=== PATIENT | female | born 1940 | race African-American/Black ===

== ENCOUNTER 2017-04-28 19:51 | Inpatient (IN) | payer OTHER, BC ==
[~2017-04-28] VITALS: Ht 162.6 cm; Wt 68.5 kg
[2017-04-28 21:48] LABS: HEMATOCRIT 27.1 % (36.0-46.0); HEMOGLOBIN 8.7 G/DL (11.9-15.5); MCH 24.2 PG (29.0-34.0); MCHC 32.1 G/DL (30.0-36.0); MCV 75.5 FL (83-99); NRBC (%) 0.1 /100 WBC (0-0); PLATELET COUNT 619 K/uL (156-360); RED BLOOD COUNT 3.59 M/uL (3.80-5.20); WHITE BLOOD COUNT 13.8 K/uL (4.1-10.2)
[2017-04-28 22:01] LABS: ALBUMIN 2.5 g/dL (3.2-4.8)
[2017-04-28 22:02] LABS: CHLORIDE 97 mEq/L (99-109); SODIUM 132 mEq/L (136-147)
[2017-04-28 22:04] LABS: GLUCOSE 117 mg/dL (70-99); TOTAL PROTEIN 6.8 g/dL (6.4-8.3)
[2017-04-28 22:07] LABS: ALKALINE PHOSPHATASE 129 IU/L (3-129)
[2017-04-28 22:08] LABS: CREATININE 4.3 mg/dL (0.6-1.3); GFR ESTIMATE (CALCULATED) 13 mL/min/
[2017-04-28 22:09] LABS: AST (GOT) 35 IU/L (2-34)
[2017-04-28 22:11] LABS: ALT (GPT) 20 IU/L (3-49)
[2017-04-28 22:12] LABS: UREA NITROGEN (BUN) 70 mg/dL (9-23)
[2017-04-28 22:29] LABS: POTASSIUM 6.1 mEq/L (3.7-5.4)
[2017-04-28 22:39] LABS: ANISOCYTOSIS 2+; BASOPHIL (%) 0.1 % (0-1); EOSINOPHIL (%) 0.1 % (0-5); IMMATURE GRANULOCYTE (%) 0.6 % (0.0-0.7); LYMPHOCYTE (%) 6.1 % (15-42); LYMPHOCYTE COUNT 0.8 K/uL (1.0-2.8); MICROCYTOSIS 1+; MONOCYTE (%) 7.2 % (3-12); NEUTROPHIL (%) 85.9 % (45-76); NEUTROPHIL COUNT 11.9 K/uL (1.8-6.4); OVALOCYTES 3+; PLAT.SUFFICIENCY INCREASED; PLATELET CLUMPS PRESENT - PLATELET COUNT APPEARS ADQ.; POIKILOCYTOSIS 3+
[2017-04-28 22:54] LABS: MAGNESIUM 2.5 mg/dL (1.3-2.7)
[2017-04-29] VITALS (16 sets, daily range): BP systolic 60–111; BP diastolic 25–56
[2017-04-29] MEDS ORDERED: ONDANSETRON ODT8 MG PO (00:47)
[2017-04-29] MEDS ORDERED: COMPAZINE10 MG PO (00:47)
[2017-04-29] MEDS ORDERED: OXYCODONE HCL5 MG PO (00:48)
[2017-04-29] MEDS ORDERED: IBUPROFEN800 MG PO (00:49)
[2017-04-29] MEDS ORDERED: LAMOTRIGINE100 MG PO (00:50)
[2017-04-29] MEDS ORDERED: ATENOLOL25 MG PO (00:50)
[2017-04-29] MEDS ORDERED: HYDROCHLOROTHIA25 MG PO (00:51)
[2017-04-29] MEDS ORDERED: ATORVASTATIN CA40 MG PO (00:52)
[2017-04-29] MEDS ORDERED: RANITIDINE HCL300 MG PO (00:52)
[2017-04-29] MEDS ORDERED: LOSARTAN POTASS25 MG PO (00:53)
[2017-04-29] MEDS ORDERED: LO-DOSE ASPIRIN81 M2 PO (00:54)
[2017-04-29] MEDS ORDERED: MAGNESIUM400 M1 PO (00:55)
[2017-04-29 01:02] LABS: TROP-I INTERPRETATION NEGATIVE; TROPONIN-I 0.05 ng/mL (0.0-0.30)
[2017-04-29 07:25] LABS: ALBUMIN 2.3 G/DL (3.2-4.8); CHLORIDE 100 MEQ/L (99-109); CREATININE 4.4 MG/DL (0.6-1.3); GFR ESTIMATE (CALCULATED) 13 mL/min/; GLUCOSE 136 mg/dL (70-99); PHOSPHORUS 5.3 mg/dL (2.5-4.9); POTASSIUM 5.9 MEQ/L (3.7-5.4); SODIUM 133 MEQ/L (136-147); UREA NITROGEN (BUN) 68 mg/dL (9-23)
[2017-04-29 07:57] LABS: INTACT PARATHYROID HORMONE 174 pg/mL (10-69)
[2017-04-29 08:37] LABS: LACTATE DEHYDROGENASE 420 IU/L (20-246); URIC ACID 9.7 mg/dL (3.1-9.2)
[2017-04-29 14:35] LABS: INTER. NORMALIZED RATIO 1.2
[2017-04-29 14:39] LABS: PTT 20.3 SEC (25-37)
[2017-04-29 16:28] LABS: CHLORIDE 98 MEQ/L (99-109); GFR ESTIMATE (CALCULATED) 11 mL/min/; GLUCOSE 146 mg/dL (70-99); SODIUM 135 MEQ/L (136-147); UREA NITROGEN (BUN) 71 mg/dL (9-23)
[2017-04-29 16:29] LABS: POTASSIUM 6.4 MEQ/L (3.7-5.4)
[2017-04-29 21:36] LABS: ALBUMIN 2.5 G/DL (3.2-4.8); CHLORIDE 100 MEQ/L (99-109); GFR ESTIMATE (CALCULATED) 11 mL/min/; SODIUM 133 MEQ/L (136-147); UREA NITROGEN (BUN) 71 mg/dL (9-23); URIC ACID 10.3 mg/dL (3.1-9.2)
[2017-04-29 21:39] LABS: GLUCOSE 244 mg/dL (70-99)
[2017-04-29 21:40] LABS: PHOSPHORUS 7.2 mg/dL (2.5-4.9); POTASSIUM 6.4 MEQ/L (3.7-5.4)
[2017-04-30] VITALS (16 sets, daily range): BP systolic 87–105; BP diastolic 30–58
[2017-04-30 00:39] LABS: BASE EXCESS -11.6 mEq/L (-3 to +3); BICARBONATE 13.4 mEq/L (22-26); CARBOXY HGB 2.7 % (0-5); COMMENTS - BLOOD GASES C+A+; DEVICE NC; METHEMOGLOBIN 0.9 % (0-1.5); O2 FLOW 4 L/MIN; PCO2 26 mm Hg (35-45); PO2 62 mm Hg (80-100); SITE RR; pH 7.32 (7.35-7.45)
[2017-04-30 02:25] LABS: CHLORIDE 104 mEq/L (99-109); POTASSIUM 5.7 mEq/L (3.7-5.4); SODIUM 136 mEq/L (136-147)
[2017-04-30 02:26] LABS: GLUCOSE 196 mg/dL (70-99)
[2017-04-30 02:30] LABS: CREATININE 5.1 mg/dL (0.6-1.3); GFR ESTIMATE (CALCULATED) 11 mL/min/
[2017-04-30 02:31] LABS: UREA NITROGEN (BUN) 77 mg/dL (9-23)
[2017-04-30 05:12] LABS: HEMATOCRIT 23.8 % (36.0-46.0); MCH 23.1 PG (29.0-34.0); MCHC 29.4 G/DL (30.0-36.0); MCV 78.5 FL (83-99); NRBC (%) 1.7 /100 WBC (0-0); PLATELET COUNT 460 K/uL (156-360); RED BLOOD COUNT 3.03 M/uL (3.80-5.20); WHITE BLOOD COUNT 13.7 K/uL (4.1-10.2)
[2017-04-30 05:29] LABS: CHLORIDE 99 MEQ/L (99-109); CREATININE 5.2 MG/DL (0.6-1.3); GFR ESTIMATE (CALCULATED) 10 mL/min/; GLUCOSE 205 mg/dL (70-99); PHOSPHORUS 7.6 mg/dL (2.5-4.9); POTASSIUM 5.7 MEQ/L (3.7-5.4); SODIUM 134 MEQ/L (136-147); UREA NITROGEN (BUN) 75 mg/dL (9-23)
[2017-04-30 05:30] LABS: MAGNESIUM 2.6 mg/dl (1.3-2.7)
== END 2017-04-30 10:37 | DRG 755 ==
LOC: EME 19:51 → 4EAST 04-29 02:12 → EDOF 04-29 02:12 → 4WEST 04-29 02:12 → ENRESERV 04-29 02:15 → 4EAST 04-29 04:22 → ENRESERV 04-29 21:41 → 4WEST 04-29 22:01
PROVIDERS: Hospitalist; Internal Medicine; Internal Medicine Nephrology; Physician Assistant; Surgery
PROC: 0W9G3ZZ Drainage of Peritoneal Cavity, Percutaneous Approach (ICD-10-PCS; 2017-04-29)
PROC: 5A12012 Performance of Cardiac Output, Single, Manual (ICD-10-PCS; principal; 2017-04-30)
DX: C56.9 Malignant neoplasm of unspecified ovary (principal); R18.0 Malignant ascites; N17.9 Acute kidney failure, unspecified; I46.9 Cardiac arrest, cause unspecified; J91.8 Pleural effusion in other conditions classified elsewhere; C79.9 Secondary malignant neoplasm of unspecified site; I50.9 Heart failure, unspecified; E87.5 Hyperkalemia; R34 Anuria and oliguria; I82.493 Acute embolism and thrombosis of other specified deep vein of lower extremity, bilateral; I82.412 Acute embolism and thrombosis of left femoral vein; I82.442 Acute embolism and thrombosis of left tibial vein; I82.812 Embolism and thrombosis of superficial veins of left lower extremity; I95.9 Hypotension, unspecified; E87.2 Acidosis; E83.39 Other disorders of phosphorus metabolism; E86.0 Dehydration; I44.4 Left anterior fascicular block; D72.829 Elevated white blood cell count, unspecified; I45.10 Unspecified right bundle-branch block; D63.8 Anemia in other chronic diseases classified elsewhere; I10 Essential (primary) hypertension; R31.9 Hematuria, unspecified; M25.562 Pain in left knee; M54.9 Dorsalgia, unspecified; Z74.01 Bed confinement status; Z79.1 Long term (current) use of non-steroidal anti-inflammatories (NSAID)
CPT/HCPCS: 36600; 49083; 71045; 71046; 71250; 74176; 76770; 80048; 80048 91; 80053; 80069; 81003; 82803; 82948; 83605; 83615; 83735; 83880; 83930; 83935; 83970; 84100; 84132; 84300; 84484; 84550; 85025; 85027; 85610; 85652; 85730; 86850; 86900; 86901; 86920; 87040; 87641; 93005; 93306; 93970; 94640; 94799; 99281; 99285; C1753; J0282; J0461; J0610; J1170; J2405; J2765; J3010; J7030; J7040; J7042; J7050; P9047; S0028